=== PATIENT | female | born 1970 | race Caucasian/White ===

== ENCOUNTER 2019-10-30 06:54 | Emergency (ER) | payer OTHER ==
[~2019-10-30] VITALS: Ht 157 cm; Wt 62.0 kg
[~2019-10-30 06:54] MED LIST: ALLERY SHOTS IM; DOCU100C37 PO; ESTR1TAB24 PO; IBUP-1780 PO; LEVO500T2 PO; OMEP20CA6 PO; OXYC-465 PO
--- NOTE | 2019-10-30 07:19 | ED Lower Extremity ---
General Chief Complaint: Lower Extremity Stated Complaint: W/C, RIGHT LEG INJURY Nursing Triage Note: PT WAS AT WORK AT [employer] AND A DYE CAST FELL ONTO HER RIGHT KNEE. SHE REPORTS THESE THINGS WEIGH ABOUT 300-500 LBS. SHE CAN BEAR WEIGHT BUT IT IS PAINFUL. SHE HAS NOT TAKEN ANY MEDICATIONS FOR PAIN. Nursing Sepsis Screen: No Definite Risk Source: patient Exam Limitations: no limitations History of Present Illness Date Seen by Provider: Oct 30, 2019 Time Seen by Provider: 07:10 Initial Comments AT work this morning and had an accident w a heavy "" falling on her right thigh (while she was standing). Pain in Right thigh/ knee. Able to walk and bear weight. No cut or swelling. No weakness, numbness or paresthesia. Allergies and Home Medications Allergies Coded Allergies: Penicillins (Verified Allergy, Severe, CHEST PAIN, 03/19/16) codeine (Verified Allergy, Severe, CHEST PAIN/RASH, 03/19/16) latex (Verified Allergy, Intermediate, RASH, 03/19/16) Home Medications Docusate Sodium 100 Mg Capsule, 100 MG PO BID Prescribed by: AMBREEN MUNGUIA on 04/03/16 0805 Estradiol 1 Mg Tablet, 1 MG PO DAILY Prescribed by: AMBREEN MUNGUIA on 04/03/16 0805 Ibuprofen 800 Mg Tablet, 800 MG PO Q6HR Prescribed by: AMBREEN MUNGUIA on 04/03/16 0805 Levofloxacin 500 Mg Tablet, 500 MG PO DAILY Prescribed by: KENYATTA HERNDON on 04/03/16 1609 Omeprazole 20 Mg Capsule.dr, 20 MG PO DAILY, (Reported) Oxycodone HCl/Acetaminophen 1 Each Tablet, 1-2 TAB PO Q4H PRN for PAIN Prescribed by: AMBREEN MUNGUIA on 04/03/16 0805 [Allery Shots] , 1 MG IM WEEKLY, (Reported) Patient Home Medication List Home Medication List Reviewed: Yes Review of Systems Constitutional: no symptoms reported Respiratory: No cough, No dyspnea on exertion, No short of breath Cardiovascular: no symptoms reported; No chest pain Gastrointestinal: No abdominal pain, No nausea Musculoskeletal: No back pain; joint pain (knee); No joint swelling; muscle pain (thigh); No muscle stiffness, No muscle cramps, No muscle twitching, No muscle weakness, No neck pain Skin: No lesions, No lumps, No rash Psychiatric/Neurological: Denies Numbness, Denies Paresthesia, Denies Pre- Existing Deficit Past [id number]-Hisils-Tfibwo Hx Past Med/Social Hx: Reviewed Nursing Past Med/Soc Hx Patient Social History Alcohol Use: Denies Use Recreational Drug Use: No Smoking Status: Never a Smoker 2nd Hand Smoke Exposure: No Recent Foreign Travel: No Contact w/Someone Who Travel: No Recent Infectious Disease Expo: No Recent Hopitalizations: No Physical Abuse: No Sexual Abuse: No Mistreated: No Fear: No Seasonal Allergies Seasonal Allergies: No Past Medical History Surgeries: Yes Appendectomy, Gallbladder, Hysterectomy, Tubal Ligation Respiratory: No Cardiac: No Neurological: No Reproductive Disorders: Yes (PELVIC MASS, VAGINAL PROLAPSE, ANTELMO) Female Reproductive Disorders: Menstrual Problems, 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, Tubal Ligation Sexually Transmitted Disease: No HIV/AIDS: No Genitourinary: No Gastrointestinal: No Gastroesophageal Reflux Musculoskeletal: No Endocrine: No HEENT: No Loss of Vision: Bilateral Hearing Impairment: Denies Cancer: No Psychosocial: No Integumentary: No Blood Disorders: No Adverse Reaction/Blood Tranf: No (HAS HAD BLOOD WITH NO PROBLEMS) Family Medical History COLON CANCER 19 MOTHER Dementia 19 MOTHER Hypertension 19 MOTHER Myocardial infarction 19 MOTHER OVARIAN CANCER G8 SISTER Physical Exam Vital Signs Vital Signs - First Documented 10/30/19 07:04 Temp 36.9 Pulse 91 Resp 18 B/P (MAP) 141/92 (108) O2 Delivery Room Air Capillary Refill : Less Than 3 Seconds Height, Weight, BMI Height: 5'2.00" Weight: 142lbs. 0.0oz. 64.352396nf; 25.00 BMI Method: General Appearance: WD/WN, no apparent distress Hips: bilateral hip non-tender, bilateral hip normal inspection, bilateral hip normal range of motion, bilateral hip no evidence of injury Legs: bilateral leg non-tender, bilateral leg normal inspection, bilateral leg normal range of motion, bilateral leg no evidence of injury Knees: left knee non-tender, left knee normal inspection, left knee normal range of motion, left knee no evidence of injury; right knee bone tenderness, right knee pain, right knee soft tissue tenderness Ankles: bilateral ankle non-tender, bilateral ankle normal inspection, bilateral ankle normal range of motion, bilateral ankle no evidence of injury Feet: bilateral foot non-tender, bilateral foot normal inspection, bilateral foot normal range of motion, bilateral foot no evidence of injury Progress/Results/Core Measures Results/Orders My Orders Orders - RADHA LACY DO Knee 3 View Right (10/30/19 07:11) Vital Signs/I&O 10/30/19 07:04 Temp 36.9 Pulse 91 Resp 18 B/P (MAP) 141/92 (108) O2 Delivery Room Air Blood Pressure Mean: 108 POS Progress Progress Note : Progress Note Patient with normal x-ray and clinical findings consistent with soft tissue injury above her right knee. No knee joint effusion, laxity or pain. Patient declined pain medication. Instructed on ICE for the next 2 days, light duty andd f/u w ERINN Bradley on 11/02. Departure Impression Primary Impression: Contusion of knee Qualified Codes: S80.01XA - Contusion of right knee, initial encounter Disposition: HOME, SELF-CARE Condition: Stable Departure-Patient Inst. Decision time for Depature: 07:20 Referrals: KENROY WINSLOW MD (PCP) Primary Care Physician GALILEO ALVARES MD (Family) Primary Care Physician Patient Instructions: Contusion (DC) RADHA LACY DO Oct 30, 2019 07:19 POS
--- NOTE | 2019-10-30 07:38 | Diagnostic Imaging Report ---
INDICATION: Work injury, equipment hit patient's knee just above the patella. FINDINGS: 3 views of the right knee demonstrate normal ossification. No fracture, dislocation or joint effusion is present. IMPRESSION: Negative right knee. Dictated by: Dictated on workstation # [id number]
[2019-10-30 07:48] VITALS: BP 141/92
== END 2019-10-30 07:40 | disposition home or self-care (01) ==
LOC: EDUNIT# 06:54 → ER FS 06:57
DX: S80.01XA Contusion of right knee, initial encounter (principal); K21.9 Gastro-esophageal reflux disease without esophagitis; Z90.49 Acquired absence of other specified parts of digestive tract; Z90.710 Acquired absence of both cervix and uterus; Z98.51 Tubal ligation status; Z88.0 Allergy status to penicillin; Z88.5 Allergy status to narcotic agent; Z91.040 Latex allergy status; Z79.52 Long term (current) use of systemic steroids; Z80.0 Family history of malignant neoplasm of digestive organs; Z82.49 Family history of ischemic heart disease and other diseases of the circulatory system; Z85.43 Personal history of malignant neoplasm of ovary; W20.8XXA Other cause of strike by thrown, projected or falling object, initial encounter; Y92.59 Other trade areas as the place of occurrence of the external cause
CPT/HCPCS: 73562

== ENCOUNTER 2020-07-05 01:43 | Emergency (ER) | payer OTHER ==
[~2020-07-05] VITALS: Ht 157.4 cm; Wt 65.6 kg
[2020-07-05 01:48] VITALS: BP 132/74
--- NOTE | 2020-07-05 01:54 | ED Headache ---
General Stated Complaint: HEADACH AND NECK PAIN Source: patient History of Present Illness Date Seen by Provider: Jul 05, 2020 Time Seen by Provider: 01:54 Initial Comments 50-year-old female presents with headache. Patient reports that she awoke with a severe pain in her neck and in her head. She has no prior history of headaches. That she was sleeping and the pain woke her up. She reports she had a similar event about 4 days ago. She reports the pain is more in her posterior neck if she turns to the right a gets a little bit worse. 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 She denies any acute injury. She denies any vision changes, nausea vomiting or other systemic complaints. Allergies and Home Medications Allergies Coded Allergies: Penicillins (Verified Allergy, Severe, CHEST PAIN, 03/19/16) codeine (Verified Allergy, Severe, CHEST PAIN/RASH, 03/19/16) latex (Verified Allergy, Intermediate, RASH, 03/19/16) Home Medications Docusate Sodium 100 Mg Capsule, 100 MG PO BID Prescribed by: AMBREEN MUNGUIA on 04/03/16 0805 Estradiol 1 Mg Tablet, 1 MG PO DAILY Prescribed by: AMBREEN MUNGUIA on 04/03/16 08 Ibuprofen 800 Mg Tablet, 800 MG PO Q6HR Prescribed by: AMBREEN MUNGUIA on 04/03/16 0805 Levofloxacin 500 Mg Tablet, 500 MG PO DAILY Prescribed by: KENYATTA HERNDON on 04/03/16 1609 Omeprazole 20 Mg Capsule.dr, 20 MG PO DAILY, (Reported) Oxycodone HCl/Acetaminophen 1 Each Tablet, 1-2 TAB PO Q4H PRN for PAIN Prescribed by: AMBREEN MUNGUIA on 04/03/16 08 [Allery Shots] , 1 MG IM WEEKLY, (Reported) Patient Home Medication List Home Medication List Reviewed: Yes Review of Systems Review of Systems Constitutional: No chills, No fever Eyes: No Symptoms Reported Ears, Nose, Mouth, Throat: no symptoms reported Respiratory: no symptoms reported Cardiovascular: no symptoms reported Gastrointestinal: no symptoms reported Genitourinary: no symptoms reported Musculoskeletal: see HPI, neck pain Psychiatric/Neurological: Headache; Denies Numbness, Denies Paresthesia Past Hkbxvdn-Jpyuyv-Svzuar Hx Past Med/Social Hx: Reviewed Nursing Past Med/Soc Hx Patient Social History 2nd Hand Smoke Exposure: No Recent Foreign Travel: No Contact w/Someone Who Travel: No Recent Hopitalizations: No Seasonal Allergies Seasonal Allergies: No Past Medical History Surgeries: Yes Appendectomy, Gallbladder, Hysterectomy, Tubal Ligation Respiratory: No Cardiac: No Neurological: No Reproductive Disorders: Yes (PELVIC MASS, VAGINAL PROLAPSE, ANTELMO) Female Reproductive Disorders: Menstrual Problems, 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, Tubal Ligation Sexually Transmitted Disease: No HIV/AIDS: No Genitourinary: No Gastrointestinal: No Gastroesophageal Reflux Musculoskeletal: No Endocrine: No HEENT: No Loss of Vision: Bilateral Hearing Impairment: Denies Cancer: No Psychosocial: No Integumentary: No Blood Disorders: No Adverse Reaction/Blood Tranf: No (HAS HAD BLOOD WITH NO PROBLEMS) Family Medical History COLON CANCER 19 MOTHER Dementia 19 MOTHER Hypertension 19 MOTHER Myocardial infarction 19 MOTHER OVARIAN CANCER G8 SISTER Physical Exam Vital Signs Vital Signs - First Documented 07/05/20 01:48 Temp 36.6 Pulse 84 Resp 18 B/P (MAP) 132/74 (93) Pulse Ox 98 O2 Delivery Room Air Capillary Refill : Height, Weight, BMI Height: 5'2.00" Weight: 142lbs. 0.0oz. 64.805255kr; 25.00 BMI Method: General Appearance: mild distress HEENT: PERRL/EOMI Neck: tender lateral, tender midline Cardiovascular: normal peripheral pulses, regular rate, rhythm Respiratory: lungs clear, normal breath sounds Gastrointestinal: non tender, soft Extremities: normal range of motion, non-tender Psychiatric: alert, oriented x 3 Crainal Nerves: normal hearing, normal speech, PERRL Motor/Sensory: no motor deficit, no sensory deficit Skin: normal color, warm/dry Lymphatic: no adenopathy Progress/Results/Core Measures Results/Orders My Orders Orders - ELSIE ABDULVOR L DO Ct Head Wo-R/O Stroke (07/05/20 01:57) Ketorolac Injection (Toradol Injection) (07/05/20 01:57) Orphenadrine Inj (Ed Only) (Norflex Inje (07/05/20 01:57) Vital Signs/I&O 07/05/20 01:48 Temp 36.6 Pulse 84 Resp 18 B/P (MAP) 132/74 (93) Pulse Ox 98 O2 Delivery Room Air Diagnostic Imaging Diagonstic Imaging: CT Plain Films/CT/US/NM/MRI: head Comments No acute findings Reviewed: Reviewed [facility] Study Departure Impression Primary Impression: Tension type headache Qualified Codes: G44.209 - Tension-type headache, unspecified, not intractable Additional Impression: Acute cervical myofascial strain Qualified Codes: S16.1XXA - Strain of muscle, fascia and tendon at neck leve l, initial encounter Disposition: HOME, SELF-CARE Condition: Stable Departure-Patient Inst. Referrals: KENROY WINSLOW MD (PCP/Family) Primary Care Physician Patient Instructions: Cervical Muscle Strain, Neck Pain Exercises, Tension Headache (DC) Add. Discharge Instructions: Follow-up with your primary care provider for further outpatient management if he continues to get recurrent headaches or worsening of your pain EVANGELINA ABDUL DO Jul 05, 2020 01:54
[2020-07-05] MEDS ORDERED: KETOROLAC 30 MG/ML VIAL IM STA (01:57)
[2020-07-05] MEDS ORDERED: ORPHENADRINE 60 MG/2 ML (NORFLEX) AMP (ED ONLY) IM STA (01:57)
--- NOTE | 2020-07-05 06:14 | Diagnostic Imaging Report ---
PROCEDURE: CT head wo r/o stroke. TECHNIQUE: Multiple contiguous axial images were obtained through the brain without the use of intravenous contrast. Auto Exposure Controls were utilized during the CT exam to meet ALARA standards for radiation dose reduction. INDICATION: Sudden onset of severe headache There are no prior studies available for comparison. There is no mass, shift to the midline or hemorrhage to suggest an acute intracranial abnormality. The ventricles are not abnormally dilated. The bone windows show no evidence for a fracture or for a destructive lesion. The orbits are symmetrical and within normal limits. The sinuses, where visualized, are clear. IMPRESSION: 1. There is no evidence for an acute intracranial abnormality. 2. If clinical concern regarding an underlying abnormality persists, then MRI would be recommended for further study. I agree with the preliminary [facility] interpretation. Dictated by: Dictated on workstation # [id number]
== END 2020-07-05 02:39 | disposition home or self-care (01) ==
LOC: EDUNIT# 01:43 → ER FS 01:45
DX: S16.1XXA Strain of muscle, fascia and tendon at neck level, initial encounter (principal); G44.209 Tension-type headache, unspecified, not intractable; K21.9 Gastro-esophageal reflux disease without esophagitis; Z88.0 Allergy status to penicillin; Z88.5 Allergy status to narcotic agent; Z91.040 Latex allergy status; Z79.52 Long term (current) use of systemic steroids; Z80.0 Family history of malignant neoplasm of digestive organs; Z82.49 Family history of ischemic heart disease and other diseases of the circulatory system; Z80.41 Family history of malignant neoplasm of ovary; X58.XXXA Exposure to other specified factors, initial encounter
CPT/HCPCS: 70450